=== PATIENT | male | born 1985 | race Caucasian/White ===

== ENCOUNTER → 2020-12-30 14:17 | Outpatient (CLI) | payer OTHER, SELFPAY | PROVIDERS: Visit Provider Urology | DX: Z20.822 Contact with and (suspected) exposure to COVID-19 (principal) | CPT/HCPCS: U0003 ==

== ENCOUNTER 2021-01-01 09:58 | Day surgery (SDC) | payer OTHER, SELFPAY ==
[2020-12-30 14:36] VITALS: BMI 41.8
[2021-01-01 10:14] VITALS: BP 147/98; PULSE 80; RESP 16; TEMP 36.2; O2SAT 96
[2021-01-01 11:53] VITALS: BP 128/75; PULSE 75; RESP 18; TEMP 36.6; O2SAT 97
[2021-01-01 12:09] VITALS: BP 128/75; PULSE 75; RESP 18; O2SAT 97
--- NOTE | 2021-01-01 12:48 | HMH.OPNOTE ---
Date of procedure: 01/01/21 Pre-op Diagnosis:: Sterilization Post-op Diagnosis:: Sterilization Procedure performed:: Vasectomy Surgeon:: Richie Acevedo MD Anesthesia: local Estimated blood loss (mL): 3 Clinical Note:: 35-year-old white male previously seen for vasectomy consultation presents for the procedure today. Operative findings:: Scrotal and testicular examination were within normal limits. Vasectomy went well no complications were incurred. Operative note:: Patient taken to the vasectomy suite after informed consent was obtained. On the stretcher he was prepped and draped in the standard surgical fashion and the left vas was palpated and brought up superiorly to the midline raphae. Local anesthetic then infiltrated under the skin and then midline raphae and around the vas. An incision was then made in the skin and the vas was grasped with a tenaculum and brought up through the incision. The vasal sheath was incised and the vas proper was isolated from its surrounding adventitia. The adventitia was pushed back to give us adequate length of the vas and 1 clip was placed distally and 2 clips placed proximally. A 1 cm segment was then excised. The lumen of the vas was cauterized and hemostasis achieved and the vas was dropped back into the left hemiscrotum. The right vas was then palpated and brought up to the midline incision as well. Local anesthetic was infiltrated around the right vas and the identical procedure was performed as on the left side. After hemostasis the right vas was dropped back into the hemiscrotum and the 3-0 chromic was placed in a horizontal mattress fashion. Sterile dressing and jockstrap were placed. The patient tolerated procedure well nourished minimal blood loss. Condition: stable Disposition: same day Specimens:: Vas segments were not sent Complications:: None
== END 2021-01-01 12:03 | disposition home or self-care (01) ==
LOC: OUTP 10:01
PROVIDERS: PCP Internal Medicine; Visit Provider Urology
PROC: (CPT 55250; principal; 2021-01-01 11:00)
DX: Z30.2 Encounter for sterilization (principal); E78.5 Hyperlipidemia, unspecified; Z79.899 Other long term (current) drug therapy
CPT/HCPCS: 55250

== ENCOUNTER 2021-08-29 17:45 | Emergency (ER) | payer OTHER, SELFPAY ==
--- NOTE | 2021-08-29 18:04 | HMH.EDUTC ---
[facility] [place] Disposition Clinical Impression: Sinusitis Qualifiers: Sinusitis location: unspecified location Chronicity: acute Recurrence: non-recurrent Qualified Code(s): J01.90 - Acute sinusitis, unspecified Disposition: Home, Self-Care Condition on Discharge: Good Instructions: DI for Sinusitis, DI for Acute Bronchitis Additional Instructions: Drink plenty of fluids. Take tylenol or ibuprofen for pain or fever. Take the medications as directed. Follow up with your regular doctor. GO TO THE ER FOR ANY WORSENING SYMPTOMS Prescriptions: Brompheniramine/Pseudoephed/Dm [Bromfed Dm Cough Syrup] 5 ml PO Q6HP PRN #240 ml PRN Reason: Cough Transmission Status: Pending to [facility] methylPREDNISolone [Medrol] 4 mg PO DIRECTED 6 Days #21 packet Transmission Status: Pending to [facility] Azithromycin [Z-Bry 250mg Tab*] 250 mg PO UD DOSE PK #6 tab Transmission Status: Pending to [facility] Referrals: Jai Langford [Primary Care Provider] - Forms: Work/School Release Time of Disposition: 19:07 Medical Decision Making - Medical Records Medical records reviewed: No: I reviewed the patient's medical records. - Cl Inquiry Pt receiving controlled substance: No Vital Signs: 08/29/21 18:19 Temperature 98.3 F Temperature Source Oral Pulse Rate [Left] 103 H Respiratory Rate 18 Blood Pressure [Right Arm] 145/88 H Blood Pressure Mean [Right Arm] 107 02 Sat by Pulse Oximetry 97 - Lab Data Lab results reviewed: Yes: I reviewed the patient's lab results. Lab Results 08/29/21 18:04: Influenza Type A Ag Negative, Influenza Type B Ag Negative 08/29/21 18:05: Group A Strep Rapid Negative Orders (Tests/Meds): ORDERS Category Date Time Status Strep Screen Confirmation Stat Micro 08/29/21 18:05 Received [facility] HPI - General Stated complaint: Chest congestion;SOA;Body aches Time Seen by Provider: 08/29/21 18:04 - History of Present Illness Provider Complaint: He states that he has been feeling bad since yesterday. He has a sore throat, sinus congestion, low grade fever, chills and malaise. - Related Data Home Medications Medication Instructions Recorded Confirmed atorvastatin 40 mg tablet 40 mg PO DAILY 12/14/20 01/01/21 paroxetine HCl 20 mg tablet 20 mg PO DAILY 12/14/20 01/01/21 testosterone 1 pump TRANSDERMA DAILY g 12/14/20 01/01/21 Previous Rx's Medication Instructions Recorded Hydrocod/Acet 5/325 mg [[place] 1 tab PO Q4HP PRN #7 tab 01/01/21 5/325mg tablet] Azithromycin [Z-Bry 250mg Tab*] 250 mg PO UD DOSE PK #6 tab 08/29/21 Brompheniramine/Pseudoephed/Dm 5 ml PO Q6HP PRN #240 ml 08/29/21 [Bromfed Dm Cough Syrup] methylPREDNISolone [Medrol] 4 mg PO DIRECTED 6 Days #21 08/29/21 packet Allergies Allergy/AdvReac Type Severity Reaction Status Date / Time No Known Allergies Allergy Verified 01/01/21 10:13 [facility] History - Hepatitis A Screen Attestation statement:: This patient has been screened for Hepatitis A risk factors. I have reviewed the patient's past medical history: Yes Medical History: Reports:: Hyperlipidemia Denies:: Cancer, Diabetes Mellitus Type 1, Diabetes Mellitus Type 2, Internal Pacemaker, MRSA, Seizures Other Surgeries: Yes: No Previous Surgery. No: Pacemaker Amputation: No Fractures: No Comment: face surgery - Social History Smoking Status: Never smoker Alcohol Intake: never Alcohol Intake Frequency:: holidays/special occasions only Substance Use Type: denies use Occupational Status: employed Housing: house Household Members: spouse Family Hx:: No significant family history ROS Obtained: Yes All systems reviewed & no additional complaints - Constitutional Constitutional: Reports as per HPI - Eyes Eyes: Denies eye discharge - ENT Ears, Nose, Mouth, and Throat: Reports as per HPI - Cardiovascular Cardiovascular: Denies chest pain - Respiratory Respiratory: Reports chest congestio
[2021-08-29 18:19] VITALS: BP 145/88; PULSE 103; RESP 18; TEMP 36.8; O2SAT 97; BMI 40.6
[2021-08-29 18:25] LABS: UTC Influenza A Antigen Negative (Negative); UTC Influenza B Antigen Negative (Negative)
[2021-08-29 18:30] LABS: Strep Scrn Group A (Rapid) Negative (Negative)
[2021-08-29 19:13] VITALS: BP 145/88; PULSE 103; RESP 18; TEMP 36.8
== END 2021-08-29 19:14 | disposition home or self-care (01) ==
PROVIDERS: Emergency Provider Nurse Practitioner Family; PCP Pediatrics
DX: J01.90 Acute sinusitis, unspecified (principal); E78.5 Hyperlipidemia, unspecified
CPT/HCPCS: 87430; 87804; 99212; C9803; G0463; U0003; U0005

== ENCOUNTER 2021-12-13 09:07 | Emergency (ER) | payer OTHER, SELFPAY ==
[2021-12-13 09:46] VITALS: BP 121/78; PULSE 70; RESP 17; TEMP 36.7; O2SAT 100; BMI 41.3
--- NOTE | 2021-12-13 09:57 | HMH.EDUTC ---
[facility] [place] Disposition Clinical Impression: Sunburn Disposition: Home, Self-Care Condition on Discharge: Good Instructions: How to Avoid Sunburn, Sunburn, DI for Sunburn, Silver Sulfadiazine Additional Instructions: Apply medication to the blistered area only try to avoid applying on healthy skin Cool compresses may help Make sure to drink plenty of water and keep yourself and your skin hydrated Apply lotion frequently ointments like Aquaphor may help Return if needed Follow up with your Family Doctor if no improvement or any worsening of symptoms Over the counter Motrin for pain Over the counter Benadryl may help with itching Over the counter Aloe may help but make sure to avoid any that contains alcohol Prescriptions: methylPREDNISolone [Medrol 4mg tab] 4 mg PO DIRECTED #21 tab Transmission Status: Pending to [facility] Silver Sulfadiazine [Silvadene Cream 50gm] 1 applic TP BID 7 Days #50 gm Transmission Status: Pending to [facility] Referrals: Jai Langford [Primary Care Provider] - As needed Forms: Work/School Release Time of Disposition: 10:08 Medical Decision Making - Cl Inquiry Pt receiving controlled substance: No Cl was queried for this patient: No Vital Signs: 12/13/21 09:46 Temperature 98.1 F Temperature Source Oral Pulse Rate [Left] 70 Respiratory Rate 17 Blood Pressure [Right Arm] 121/78 Blood Pressure Mean [Right Arm] 92 02 Sat by Pulse Oximetry 100 Medical Decision Narrative: Patient states that he has taken Medrol in the past without compllications or reactions [facility] [place] HPI - General Stated complaint: sunburn Time Seen by Provider: 12/13/21 09:57 Description of Symptoms (Recalled from Triage Doc. by RN): patient comes in with sunburn blisters that occured monday. blisters are across top of back and shoulder area. patient states he has been having pain r/t the blisters HEENT Symptoms (Recalled from RN notes): No Resp Symptoms (Recalled from RN notes): No Skin Symptoms (Recalled from RN notes): Yes MS Symptoms (Recalled from RN notes): No Functional Status (Recalled from RN notes): n/a - History of Present Illness Provider Complaint: Patient states that he was out in the sun on Monday and noticed monday that he had a bad sunburn States that he noticed he had little blisters on his shoulders that was fluid filled and hurt when he would touch them States that he has been taking otc Motrin but not helped much so today he came in to get checked out - Related Data Home Medications Medication Instructions Recorded Confirmed atorvastatin 40 mg tablet 40 mg PO DAILY 12/14/20 12/13/21 paroxetine HCl 20 mg tablet 20 mg PO DAILY 12/14/20 12/13/21 testosterone 1 pump TRANSDERMA DAILY g 12/14/20 12/13/21 Previous Rx's Medication Instructions Recorded Hydrocod/Acet 5/325 mg [[place] 1 tab PO Q4HP PRN #7 tab 01/01/21 5/325mg tablet] Azithromycin [Z-Bry 250mg Tab*] 250 mg PO UD DOSE PK #6 tab 08/29/21 Brompheniramine/Pseudoephed/Dm 5 ml PO Q6HP PRN #240 ml 08/29/21 [Bromfed Dm Cough Syrup] methylPREDNISolone [Medrol] 4 mg PO DIRECTED 6 Days #21 08/29/21 packet Silver Sulfadiazine [Silvadene 1 applic TP BID 7 Days #50 gm 12/13/21 Cream 50gm] methylPREDNISolone [Medrol 4mg 4 mg PO DIRECTED #21 tab 12/13/21 tab] Allergies Allergy/AdvReac Type Severity Reaction Status Date / Time No Known Allergies Allergy Verified 12/13/21 09:37 - Worker's Comp Is this a Worker's Comp case?: No [facility] History - Hepatitis A Screen Attestation statement:: This patient has been screened for Hepatitis A risk factors. I have reviewed the patient's past medical history: Yes Medical History: Reports:: Hyperlipidemia Denies:: Cancer, Diabetes Mellitus Type 1, Diabetes Mellitus Type 2, Internal Pacemaker, MRSA, Seizures Other Surgeries: Yes: No Previous Surgery. No: Pacemaker Amputation: No Fractures: No Comment: face surgery - Social History
[2021-12-13 10:12] VITALS: BP 121/78; PULSE 70; RESP 17; TEMP 36.7
== END 2021-12-13 10:14 | disposition home or self-care (01) ==
PROVIDERS: Emergency Provider Nurse Practitioner; PCP Pediatrics
DX: L55.1 Sunburn of second degree (principal)
CPT/HCPCS: 99212; G0463

== ENCOUNTER 2022-02-20 10:15 | Emergency (ER) | payer OTHER, SELFPAY ==
[2022-02-20 10:30] VITALS: BP 141/77; PULSE 76; RESP 16; TEMP 36.7; O2SAT 98; BMI 38.6
--- NOTE | 2022-02-20 10:35 | EXP.UTC ---
Discharge Plan Disposition Patient Disposition: Home, Self-Care Prescriptions Prescriptions: New azithromycin [Zithromax Z-Bry] 250 mg tablet 250 mg PO DAILY 5 Days Qty: 5 0RF fluticasone propionate [fluticasone propionate] 50 mcg/actuation spray,suspension 1 spr intranasal DAILY 14 Days Qty: 1 0RF Continued testosterone 12.5 mg/ 1.25 gram (1 %) gel in metered-dose pump 1 pump TRANSDERMA DAILY atorvastatin 40 mg tablet 40 mg PO DAILY paroxetine HCl 20 mg tablet 20 mg PO DAILY hydrocodone-acetaminophen 1 TAB tablet 1 tab PO Q4HP PRN (Reason: Mild To Moderate Pain) Qty: 7 0RF escitalopram oxalate 10 mg tablet 10 mg PO DAILY Discontinued azithromycin 250 MG tablet 250 mg PO UD DOSE PK Qty: 6 0RF Rx Instructions: Take two (2) tablets today, then one (1) tablet days #2 thru #5 methylprednisolone 4 MG tablets,dose pack 4 mg PO DIRECTED 6 Days Qty: 21 0RF [id number] 118 ML syrup 5 ml PO Q6HP PRN (Reason: Cough) Qty: 240 0RF silver sulfadiazine 50 GM bottle 1 applic TP BID 7 Days Qty: 50 0RF methylprednisolone 4 MG tablet 4 mg PO DIRECTED Qty: 21 0RF Rx Instructions: Take as directed on package instructions Referrals Follow up/Referrals: Yadiel Langford [Primary Care Provider] - See instructions Clinical Impressions Clinical Impression: Sinusitis Instructions Patient Instructions: DI for Sinusitis, Sinusitis Discharge ED Provider: Elkin ([facility])Connor [facility] [place] H[place] General Stated complaint: Congestion, sinus pressure Mode of Arrival: Ambulatory Source of Information: Patient Limitations: No Limitations Time Seen by Provider: 02/20/22 10:38 Description of Symptoms (Recalled from Triage Doc. by RN): pt comes in with c/o chest congestion, sinus pressure. symptoms have been ongoing for 2 weeks. HEENT Symptoms (Recalled from RN notes): Yes Resp Symptoms (Recalled from RN notes): Yes Skin Symptoms (Recalled from RN notes): No MS Symptoms (Recalled from RN notes): No Functional Status (Recalled from RN notes): n/a History of Present Illness Provider Complaint: 36 yr old male presents for sinus pressure, green nasal congestion, sinus tenderness and headache Onset (ago): day(s) Related Data Home Medications Medication Instructions Recorded Confirmed atorvastatin 40 mg tablet 40 mg PO DAILY hld 12/14/20 02/20/22 paroxetine HCl 20 mg tablet 20 mg PO DAILY mood 12/14/20 12/13/21 testosterone 12.5 mg/1.25 gram per 1 pump TRANSDERMA DAILY hormones 12/14/20 12/13/21 actuation (1%) transdermal gel pump escitalopram oxalate 10 mg tablet 10 mg PO DAILY Anxiety 02/20/22 02/20/22 Previous Rx's Medication Instructions Recorded hydrocodone 5 mg-acetaminophen 325 1 tab PO Q4HP PRN Mild To Moderate 01/01/21 mg tablet Pain #7 tabs azithromycin 250 mg tablet 250 mg PO DAILY 5 days #5 tabs 02/20/22 (Zithromax Z-Bry) fluticasone propionate 50 1 spr intranasal DAILY 14 days #1 02/20/22 mcg/actuation nasal mL spray,suspension Allergies Allergy/AdvReac Type Severity Reaction Status Date / Time No Known Allergies Allergy Verified 02/20/22 10:34 Worker's Comp Is this a Worker's Comp case?: No PFSH PFSH Social History , KEY ENTRY OPERATOR) Smoking Status: Never smoker alcohol intake: never substance use type: denies use current occupational status: employed Travel in the last 8 weeks: None household members: spouse housing: house current occupational exposures/hazards: No caffeine: Yes ROS Obtained: Yes All systems reviewed & no additional complaints except as documented Constitutional Constitutional: Reports system reviewed and no additional complaints, except as documented and Reports headache(s) Eyes Eyes: Reports system reviewed and no additional complaints, except as documented ENT Ears, Nose, Mouth, and Throat: Reports system reviewed and n
[2022-02-20 10:53] VITALS: BP 141/77; PULSE 76; RESP 16; TEMP 36.7
== END 2022-02-20 10:53 | disposition home or self-care (01) ==
PROVIDERS: Emergency Provider Nurse Practitioner Family; PCP Internal Medicine
DX: J32.9 Chronic sinusitis, unspecified
CPT/HCPCS: 99212; G0463

== ENCOUNTER 2023-02-24 11:33 | Emergency (ER) | payer OTHER, SELFPAY ==
[2023-02-24 12:15] VITALS: BP 146/94; PULSE 80; RESP 20; TEMP 36.9; O2SAT 97; BMI 39.3
--- NOTE | 2023-02-24 12:16 | EXP.UTC ---
Discharge Plan Disposition Patient Disposition: Home, Self-Care Condition: Good Prescriptions Prescriptions: New amoxicillin 875 mg tablet 875 mg PO BID Qty: 20 0RF No Action testosterone 12.5 mg/ 1.25 gram (1 %) gel in metered-dose pump 1 pump TRANSDERMA DAILY atorvastatin 40 mg tablet 40 mg PO DAILY paroxetine HCl 20 mg tablet 20 mg PO DAILY hydrocodone-acetaminophen 1 TAB tablet 1 tab PO Q4HP PRN (Reason: Mild To Moderate Pain) Qty: 7 0RF escitalopram oxalate 10 mg tablet 10 mg PO DAILY azithromycin [Zithromax Z-Bry] 250 mg tablet 250 mg PO DAILY 5 Days Qty: 5 0RF fluticasone propionate [fluticasone propionate] 50 mcg/actuation spray,suspension 1 spr intranasal DAILY 14 Days Qty: 1 0RF Referrals Follow up/Referrals: Yadiel Langford [Primary Care Provider] - See instructions Clinical Impressions Clinical Impression: Strep pharyngitis Stand Alone Forms Stand Alone Forms: Work/School Release Discharge ED Provider: Joyce Morel [facility] [place] HPI General Stated complaint: sore throat, congestion Time Seen by Provider: 02/24/23 12:32 History of Present Illness Provider Complaint: Sore throat, congestion, malaise X 3 days. No fever. Son has strep. Onset (ago): day(s) (3) Relieving factors: none Exacerbating factors: none Associated symptoms: denies other symptoms Treatments prior to arrival: none Related Data Home Medications Medication Instructions Recorded Confirmed atorvastatin 40 mg tablet 40 mg PO DAILY hld 12/14/20 02/20/22 paroxetine HCl 20 mg tablet 20 mg PO DAILY mood 12/14/20 12/13/21 testosterone 12.5 mg/1.25 gram per 1 pump TRANSDERMA DAILY hormones 12/14/20 12/13/21 pump actuation (1%) transdermal gel escitalopram oxalate 10 mg tablet 10 mg PO DAILY Anxiety 02/20/22 02/20/22 Previous Rx's Medication Instructions Recorded hydrocodone 5 mg-acetaminophen 325 1 tab PO Q4HP PRN Mild To Moderate 01/01/21 mg tablet Pain #7 tabs azithromycin 250 mg tablet 250 mg PO DAILY 5 days #5 tabs 02/20/22 (Zithromax Z-Bry) fluticasone propionate 50 1 spr intranasal DAILY 14 days #1 02/20/22 mcg/actuation nasal mL spray,suspension amoxicillin 875 mg tablet 875 mg PO BID #20 tabs 02/24/23 Allergies Allergy/AdvReac Type Severity Reaction Status Date / Time No Known Allergies Allergy Verified 02/20/22 10:34 [facility] Disclaimer: The information contained in this section may have been updated after the patient was seen, as this information can be updated by other users. 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 smoker alcohol intake: never substance use type: denies use current occupational status: employed Travel in the last 8 weeks: None household members: spouse housing: house current occupational exposures/hazards: No caffeine: Yes ROS Obtained: Yes All systems reviewed & no additional complaints except as documented ENT Ears, Nose, Mouth, and Throat: Reports sore throat Physical Exam General General appearance: alert and in no apparent distress Head Head exam: atraumatic, normocephalic and normal inspection Eye Eye exam: Present normal appearance, PERRL and EOMI ENT ENT exam: Present normal exam, normal oropharynx, mucous membranes moist, TM's normal bilaterally and normal external ear exam Expanded ENT Exam Throat exam: Present tonsillar erythema, tonsillomegaly and tonsillar exudate Chest Chest inspection: Present normal inspection and symmetric chest wall rise; Absent tenderness Respiratory Respiratory exam: Present normal lung sounds bilaterally; Absent respiratory distress Cardiovascular Cardiovascular exam: Present regular rate and normal rhythm; Absent JVD Extremities Exam Extremities exam: Present normal inspection, full ROM and normal capillary refill;
[2023-02-24 12:21] LABS: UTC Strep Screen (Rapid) Positive (Negative)
[2023-02-24 12:32] VITALS: BP 146/94; PULSE 80; RESP 20; TEMP 36.9; O2SAT 97
== END 2023-02-24 12:43 | disposition home or self-care (01) ==
PROVIDERS: Emergency Provider Physician Assistant; PCP Internal Medicine
DX: J02.0 Streptococcal pharyngitis (principal); F41.9 Anxiety disorder, unspecified
CPT/HCPCS: 87880; 99212; 99214; G0463

== ENCOUNTER 2023-05-21 12:20 | Emergency (ER) | payer OTHER, SELFPAY ==
--- NOTE | 2023-05-21 13:10 | EXP.UTC ---
Discharge Plan Disposition Patient Disposition: Home, Self-Care Condition: Good Prescriptions Prescriptions: New amoxicillin [amoxicillin] 875 mg tablet 875 mg PO Q12H Qty: 20 0RF methylprednisolone 4 mg Tablets,Dose Pack 4 mg PO DIRECTED Qty: 21 0RF iqyszjmzruzkqve-irjpvdnpz-YK [Bromfed DM] 2-30-10 mg/5 mL Syrup 5 ml PO Q6H PRN (Reason: Cough) Qty: 240 0RF No Action sildenafil 100 mg tablet 100 mg PO DAILY Patient Comments: Take 1/2-1 tablet once a day as needed for ED sertraline 50 mg tablet 50 mg PO DAILY Referrals Follow up/Referrals: Yadiel Langford [Primary Care Provider] - See instructions Activity Restrictions/Add. Instructions Additional Instructions/Restrictions: Drink plenty of fluids. Take tylenol or ibuprofen for pain or fever. Take the medications as directed. Follow up with your regular doctor. GO TO THE ER FOR ANY WORSENING SYMPTOMS Clinical Impressions Clinical Impression: Sinusitis, Pharyngitis Stand Alone Forms Stand Alone Forms: Work/School Release Instructions Patient Instructions: Sinusitis, DI for Pharyngitis/Tonsillopharyngitis -- Adult, DI for Sinusitis Discharge ED Provider: Tre Vergara [facility] General Stated complaint: sore throat, congestion Time Seen by Provider: 05/21/23 13:10 Related Data Home Medications Medication Instructions Recorded Confirmed sertraline 50 mg tablet 50 mg PO DAILY 05/21/23 05/21/23 sildenafil 100 mg tablet 100 mg PO DAILY 05/21/23 05/21/23 Previous Rx's Medication Instructions Recorded amoxicillin 875 mg tablet 875 mg PO Q12H #20 tabs 05/21/23 nbbudfjciokkosu-latqcvlarflnzhv-BY 5 ml PO Q6H PRN Cough #240 mL 05/21/23 2 mg-30 mg-10 mg/5 mL oral syrup (Bromfed DM) methylprednisolone 4 mg tablets in 4 mg PO DIRECTED #21 tabs 05/21/23 a dose pack Allergies Allergy/AdvReac Type Severity Reaction Status Date / Time No Known Allergies Allergy Verified 02/20/22 10:34 [facility] Disclaimer: The information contained in this section may have been updated after the patient was seen, as this information can be updated by other users. Medical History (Updated 05/21/23 @ 13:35 by Tre Vergara APRN) Anxiety Social History OTONIEL) Smoking Status: Never smoker alcohol intake: never substance use type: denies use current occupational status: employed Travel in the last 8 weeks: None household members: spouse housing: house current occupational exposures/hazards: No caffeine: Yes ROS Obtained: Yes All systems reviewed & no additional complaints except as documented Constitutional Constitutional: Reports chills and Reports fever(s) Eyes Eyes: Denies eye discharge ENT Ears, Nose, Mouth, and Throat: Reports as per HPI Cardiovascular Cardiovascular: Denies chest pain Respiratory Respiratory: Denies chest congestion and Reports cough Gastrointestinal Gastrointestingal: Reports nausea; Denies abdominal pain, constipation, cramping, diarrhea or vomiting Musculoskeletal Musculoskeletal: Denies arthralgias Integumentary/Breasts Skin/Breast: Denies rash Neurologic Neurologic: Denies paresthesias Physical Exam General General appearance: alert and in no apparent distress Head Head exam: atraumatic, normocephalic and normal inspection Eye Eye exam: Present normal appearance, PERRL and EOMI ENT ENT exam: Present mucous membranes moist and normal external ear exam Expanded ENT Exam TM/Canal exam: Bilateral TM: erythema and bulging Nose exam: Absent sinus tenderness Mouth exam: Present normal external inspection; Absent drooling Teeth exam: Present normal inspection Throat exam: Present tonsillar erythema, tonsillomegaly and tonsillar exudate Neck Neck exam: Present normal inspection, full ROM and trachea midline; Absent tenderness, meningismus or lymphadenopathy Chest Chest inspection: Present normal
[2023-05-21 13:15] VITALS: BP 134/79; PULSE 77; RESP 19; TEMP 37.1; O2SAT 97; BMI 40.8
[2023-05-21 13:35] LABS: UTC Strep Screen (Rapid) Negative (Negative)
[2023-05-21 13:45] VITALS: BP 134/79; PULSE 77; RESP 19; TEMP 37.1; O2SAT 97
== END 2023-05-21 13:48 | disposition home or self-care (01) ==
PROVIDERS: Emergency Provider Nurse Practitioner Family; PCP Internal Medicine
DX: J01.90 Acute sinusitis, unspecified (principal); J02.9 Acute pharyngitis, unspecified; R50.9 Fever, unspecified; R05.9 Cough, unspecified; R09.81 Nasal congestion; R11.0 Nausea
CPT/HCPCS: 87635; 87880; 99212; 99214; G0463

== ENCOUNTER 2024-05-21 07:59 | Emergency (ER) | payer BC, SELFPAY ==
[2024-05-21 08:10] VITALS: BP 129/84; PULSE 86; RESP 20; TEMP 37.8; O2SAT 98; BMI 41.5
--- NOTE | 2024-05-21 08:16 | ED_ITS ---
Discharge Plan Disposition Patient Disposition: Home, Self-Care Condition: Good Prescriptions Prescriptions: New penicillin V potassium 500 mg tablet 500 mg PO BID 10 Days Qty: 20 0RF No Action sertraline 50 mg tablet 50 mg PO DAILY atorvastatin 40 mg Tablet 40 mg PO HS testosterone 20.25 mg/1.25 gram (1.62 %) gel in metered-dose pump 1 pump topical DAILY Referrals Follow up/Referrals: Yadiel Langford [Primary Care Provider] - See instructions Activity Restrictions/Add. Instructions Additional Instructions/Restrictions: *Monitor Temp, Over the counter Motrin or Tylenol as directed/as needed Tylenol every 4 hours and Motrin every 6 hours (as long as your family doctor has told you that you can take it) for fever or pain. and straight to ER if unable to lower temp less than 101.0 after medication given *Warm salt water gargles may help to soothe the throat *Throat Lozenges? *Warm fluids like tea with honey may help to soothe the throat? *Sleep elevated *Humidifier/Vaporizer *If you did not take Penicillin shot or was unable to, start taking antibiotic immediately and make sure that you take it for the FULL length of time although you should start to feel better in 24-48 hours *change toothbrush and toothpaste 24-48 hours after starting to take antibiotics so you do not reinfect yourself Monitor Temp. Tylenol and/or Ibuprofen as needed. ER if fever is no less than 101 despite alternating Tylenol and Ibuprofen * Encourage fluids, water, Gatorade, powerade, pedialyte if infant/toddler/or child *Cold fluids, popsicles and ice cream may feel good on his throat Follow up IMMEDIATELY for new or worsening symptoms or no Noticeable improvement over the next 48-72 hours. 911 for difficulty breathing or swallowing Clinical Impressions Clinical Impression: Strep throat Stand Alone Forms Stand Alone Forms: Work/School Release Instructions Patient Instructions: DI for Strep Throat, Strep Throat Print Language Print Language: Slovenian Discharge ED Provider: Nasreen Toussaint [facility] [place] General Stated complaint: sore throat, cough, fever Time Seen by Provider: 05/21/24 08:16 History of Present Illness Provider Complaint: Patient states that he has been having sore throat and fever States feels like he has strep throat His throat is scratchy and feels like he is swallowing glass Related Data Home Medications ?Medication ?Instructions ?Recorded ?Confirmed sertraline 50 mg tablet 50 mg PO DAILY 05/21/23 05/21/24 atorvastatin 40 mg tablet 40 mg PO HS 05/21/24 05/21/24 testosterone 1 pump topical DAILY 05/21/24 05/21/24 Previous Rx's ?Medication ?Instructions ?Recorded penicillin V potassium 500 mg 500 mg PO BID 10 days #20 tabs 05/21/24 tablet Allergies Allergy/AdvReac Type Severity Reaction Status Date / Time No Known Allergies Allergy Verified 02/20/22 10:34 [facility] Disclaimer: The information contained in this section may have been updated after the patient was seen, as this information can be updated by other users. Medical History (Updated 05/21/24 @ 08:26 by Nasreen Toussaint APRN) Anxiety Social History , OTONIEL) Smoking Status: Never smoker alcohol intake: never substance use type: denies use current occupational status: employed Travel in the last 8 weeks: None household members: spouse housing: house current occupational exposures/hazards: No caffeine: Yes Have you lived/traveled outside [place] in past 30 days?: No Contact w/someone who lives/traveled outside US past 30 days?: No Exposure to someone with infectious disease in past 14 days?: No Do you have a fever (greater than 100.4 F or 38 C)?: Yes Have you tested positive for COVID-19: No Exposed to someone with COVID-19 in past 14 days?: No Do you have a sore throat?: Yes Do you have a cough?: Yes Do you have any weakness?: No Do you have any diarrhea?: No Are you experiencing any unusual bleeding?: No Do you have any muscle aches/pain?: No Do you have any abdominal pain?: No Are you experiencing loss of taste or smell?: No ROS Obtained: Yes All systems reviewed & no additional complaints except as documented and Yes Systems reviewed as appropriate & no additional complaints except as documented Constitutional Constitutional: Reports system reviewed and no additional complaints, except as documented, Reports as per HPI, Reports fever(s) and Reports headache(s) ENT Ears, Nose, Mouth, and Throat: Reports system reviewed and no additional complaints, except as documented, Reports as per HPI, Reports headache(s) and Reports sore throat Cardiovascular Cardiovascular: Reports system reviewed and no additional complaints, except as documented and Reports as per HPI Respiratory Respiratory: Reports system reviewed and no additional complaints, except as documented and Reports as per HPI Gastrointestinal Gastrointestingal: Reports system reviewed and no additional complaints, except as documented and as per HPI Musculoskeletal Musculoskeletal: Reports system reviewed and no additional complaints, except as documented and Reports as per HPI Neurologic Neurologic: Reports headache(s) Physical Exam General General appearance: alert and in no apparent distress ENT ENT exam: Present mucous membranes moist Expanded ENT Exam Nose exam: Absent sinus tenderness Throat exam: Present tonsillar erythema and tonsillar exudate Respiratory Respiratory exam: Present normal lung sounds bilaterally; Absent respiratory distress or wheezes Cardiovascular Cardiovascular exam: Present regular rate, normal rhythm and normal heart sounds Abdominal Exam Abdominal exam: Present soft and normal bowel sounds; Absent distention or tenderness Neurological Exam Neurological exam: Present alert, oriented X3 and normal gait Medical Decision Making Medical Records Screening: Per USPSTF and CDC recommendations, given the prevalence of disease in our region, it is our hospital?s policy to screen for HIV and viral Hepatitis for all patients aged 18 and over and those with ongoing risk factors. Cl Inquiry Pt receiving controlled substance: No Cl was queried for this patient: No Lab Data Lab results reviewed: Yes I reviewed the patient's lab results.
[2024-05-21 08:24] LABS: UTC Strep Screen (Rapid) Positive (Negative)
[2024-05-21 08:30] VITALS: BP 129/84; PULSE 86; RESP 20; TEMP 37.8; O2SAT 98
== END 2024-05-21 08:33 | disposition home or self-care (01) ==
PROVIDERS: Emergency Provider Nurse Practitioner; PCP Internal Medicine
DX: J02.0 Streptococcal pharyngitis (principal)
CPT/HCPCS: 87880; 99213; G0381

== ENCOUNTER 2025-05-20 14:38 | Emergency (ER) | payer OTHER, SELFPAY ==
--- OUTSIDE RECORDS SUMMARY | 2025-04-14 13:15 | XMS_ITS | Encounter Summary ---
Author Organization [facility] Address [address] [place] [address] Care Team Providers Care Crane Hoist Or Lift Operator Name Role Phone Yadiel Langford MD Primary Care Provider [phone] Reason for Visit * Reason Comments Sore Throat Cough Nasal Congestion Encounter Details Date Type Department Care Team (Late st Contact Info) Description 04/14/2025 1:15 PM EST Office Visit [facility] [address] [place] [address] [place] [id number] Yadiel Langford MD [address] [place] [address] [place] [id number] Acute pharyngitis, unspecified etiology (Primary Dx) Social History Tobacco Use Types Packs/Day Years Used Date Smoking Tobacco: Never Smokeless Tobacco: Never Alcohol Use Standard Drinks/Week Comments Yes 0 (1 standard drink = 0.6 oz pur e alcohol) RARE SOCIAL PHQ-2 Answer Date Recorded Retired PHQ-9: Brief Depression Severity Measure Score 0 12/12/2022 PHQ-2 Answer Date Recorded Patient Health Questionnaire-2 Score 0 02/11/2025 Sex and Gender Information Value Date Recorded Sex Assigned at Not on file Legal Sex Male 6:50 PM EDT Gender Identity Not on file Sexual Orientation Not on file documented as of this encounter Last Filed Vital Signs Vital Sign Reading Time Taken Comments Blood Pressure 118/80 04/14/2025 1:09 PM EST Pulse 80 04/14/2025 1:09 PM EST Temperature 36.9 C (98.4 F) 04/14/2025 1:09 PM EST Respiratory Rate 20 04/14/2025 1:09 PM EST Oxygen Saturation 99% 04/14/2025 1:09 PM EST Inhaled Oxygen Concentration - - Weight 137 kg (303 lb) 04/14/2025 1:09 PM EST Height 175.9 cm (5' 9.25 ) 04/14/2025 1:09 PM ES T Body Mass Index 44.42 04/14/2025 1:09 PM EST documented in this encounter Progress Notes * Yadiel Langford MD - 04/14/2025 1:15 PM EST Images from the original note were not included. Follow Up Office Visit Date: 04/14/2025 Patient Name: Marin Bills : 1985 Chief Complaint: Chief Complaint Patient presents with Sore Throat Cough Nasal Congestion History of Present Illness: Marin Bills is a 40 y.o. male who is here today for evaluation of sore throat. History of Present Illness The patient presents for evaluation of a sore throat. He was diagnosed with strep throat a few weeks ago, confirmed through testing at an urgent treatment center. Concurrently, an ear infection was suspected due to the redness observed in his ear, although he did not experience any discomfort related to it. He was prescribed amoxicillin, which initially alleviated his symptoms. However, upon discontinuation of the medication, his symptoms recurred within 2 to 3 days. He describes his current condition as feeling like swallowing glass, similar to his pre-diagnosis state. He reports no fevers or headaches but experienced body aches and fatigue during his initial illness. Currently, he has a runny nose that has persisted for 3 to 4 days. He is not experiencing nausea or abdominal pain and maintains a good appetite. He also reports pain when talking after work. He has been managing his pain with Advil or Tylenol. MEDICATIONS CURRENT MEDS: Advil Tylenol IMMUNIZATIONS He has had the influenza vaccine. Subjective Review of Systems: Review of Systems I have reviewed the patients family history, social history, past medical history, past surgical history and have updated it as appropriate. Medications: Current Outpatient Medications: atorvastatin (LIPITOR) 80 MG tablet, Take 1 tablet by mouth every night at bedtime., Disp: 90 tablet, Rfl: 2 cetirizine (zyrTEC) 10 MG tablet, Take 1 tablet by mouth Daily. As needed for allergies, Disp: 90 tablet, Rfl: 2 Cholecalciferol (Vitamin D) 50 MCG (1999 UT) tablet, Take 1 tablet by mouth Daily., Disp: 90 tablet, Rfl: 3 fluticasone (FLONASE) 50 MCG/ACT nasal spray, Administer 2 sprays into the nostril(s) as directed by provider Daily., Disp: 16 g, Rfl: 3 mupirocin (BACTROBAN) 2 % ointment, Apply 1 Application topically to the appropriate area as directed 3 (Three) Times a Day., Disp: 22 g, Rfl: 0 sertraline (Zoloft) 100 MG tablet, Take 1 tablet by mouth Daily., Disp: 90 tablet, Rfl: 2 sildenafil (VIAGRA) 100 MG tablet, Take 1 tablet by mouth As Needed for Erectile Dysfunction., Disp: 20 tablet, Rfl: 3 Testosterone 1.62 % gel, APPLY 1 PUMP TO EACH SHOULDER TOPICALLY ONCE DAILY (TOTAL 2 PUMPS), Disp: 75 g, Rfl: 0 Allergies: Allergies Allergen Reactions Shrimp Provider Review Needed Objective Physical Exam: Please see above Vital Signs: Vitals: 04/14/25 1309 BP: 118/80 BP Location: Left arm Patient Position: Sitting Cuff Size: Adult Pulse: 80 Resp: 20 Temp: 98.4 ??F (36.9 ??C) TempSrc: Temporal SpO2: 99% Weight: (!) 137 kg (303 lb) Height: 175.9 cm (69.25 ) Body mass index is 44.42 kg/m??. Physical Exam Constitutional: General: He is not in acute distress. Appearance: Normal appearance. He is obese. He is not ill-appearing. HENT: Right Ear: Tympanic membrane and ear canal normal. Left Ear: Tympanic membrane and ear canal normal. Nose: Congestion and rhinorrhea present. Mouth/Throat: Mouth: Mucous membranes are moist. Pharynx: Posterior oropharyngeal erythema present. No oropharyngeal exudate. Comments: Mild posterior pharyngeal erythema without exudate petechiae or ulcerations Cardiovascular: Rate and Rhythm: Normal rate and regular rhythm. Heart sounds: Normal heart sounds. No murmur heard. No friction rub. No gallop. Pulmonary: Effort: Pulmonary effort is normal. No respiratory distress. Comments: No cough noted Musculoskeletal: Cervical back: No rigidity or tenderness. Lymphadenopathy: Cervical: No cervical adenopathy. Skin: General: Skin is warm and dry. Findings: No rash. Neurological: General: No focal deficit present. Mental Status: He is alert. Psychiatric: Mood and Affect: Mood normal. Procedures Results: Labs: Hemoglobin A1C Date Value Ref Range Status 02/11/2025 5.9 (A) 4.5 - 5.7 % Final TSH Date Value Ref Range Status 02/11/2025 1.650 0.450 - 4.500 uIU/mL Final POCT Results (if applicable): Results for orders placed or performed in visit on 04/14/25 POC Rapid Strep A Collection Time: 04/14/25 1:46 PM Specimen: Swab Result Value Ref Range Rapid Strep A Screen Negative Negative, VALID, INVALID, Not Performed Internal Control Passed Passed Lot Number [id number] Expiration Date 05/06/2026 Assessment / Plan Assessment/Plan: Diagnoses and all orders for this visit: 1. Acute pharyngitis, unspecified etiology (Primary) - POC Rapid Strep A Assessment & Plan 1. Upper respiratory infection. The patient's symptoms, including a sore throat, runny nose, and cough, suggest a viral etiology rather than streptococcal pharyngitis, especially given the negative strep test result. The infection is expected to resolve within 3 to 5 days or potentially longer. He is advised to maintain social distance until his symptoms subside. [id number] remedies such as Chloraseptic sprays, warm saline gargles, Tylenol, ibuprofen, and lozenges are recommended for symptomatic relief. He is encouragedto receive the COVID-19 booster vaccine at a pharmacy once his symptoms resolve. If there is no improvement in his condition or if symptoms worsen, he should inform the clinic immediately. Follow-up The patient will follow up on 08/11/2025. Vaccine Counseling: Follow Up: Return for Next scheduled follow up. Patient or patient accounts receivable representative verbalized consent for the use of Ambient Listening during the visit with Yadiel Langford MD for chart documentation. 04/14/2025 15:01 EST At [facility], we believe that sharing information builds trust and better relationships. You are receiving this note because you recently visited [facility]. It is possible you will see health information before a provider has talked with you about it. This kind of information can be easy to misunderstand. To help you fully understand what it means for your health, we urge you to discussthis note with your provider. Yadiel Langford MD [facility] documented in this encounter Plan of Treatment Upcoming Encounters Date Type Department Care Team (Late st Contact Info) Description 08/11/2025 3:00 PM EDT Office Visit [facility] [address] [place] [address] [place] [phone] Yadiel Langford MD [address] [place] [address] [place] [id number] 02/12/2026 3:30 PM EDT Office Visit [address] [place] [id number] Yadiel Langford MD [address] [place] [address] [place] [id number] documented as of this encounter Procedures Procedure Name Priority Date/Time Associated Diagnosis Comments POCT RAPID STREP A Routine 04/14/2025 1: 46 PM EST Acute pharyngitis, unspecified etiology documented in this encounter Results * POC Rapid Strep A (04/14/2025 1:46 PM EST) Rapid Strep A Screen Negative Negative, VALID, INVALID, Not Performed [facility] Internal Control Passed Passed [facility] Lot Number [id number] [facility] Expiration Date 05/06/2026 [facility] Swab 04/14/2025 1:46 PM EST us Yadiel Langford MD POINT OF CARE TEST ORDERABLES Final Result [facility]
[address] [place] [address], [place] [phone] documented in this encounter Visit Diagnoses Diagnosis Acute pharyngitis, unspecified etiology- Primary documented in this encounter Care Teams Crane Hoist Or Lift Operator Relationship Specialty Start Date End Date Yadiel Langford MD [address] [place] [address] [place] [id number] PCP - General Internal Medicine 04/18/22 documented as of this encounter
[2025-05-20 15:02] VITALS: BP 149/81; PULSE 102; RESP 19; TEMP 36.7; O2SAT 95; BMI 44.3
--- NOTE | 2025-05-20 15:05 | XR_ITS ---
FINAL REPORT TECHNIQUE: Single view chest CLINICAL HISTORY: SOA FINDINGS: A single view of the chest was obtained. The heart and mediastinum are within normal limits. There is a right base opacity which could represent atelectasis or pneumonia. There is no pneumothorax. IMPRESSION: No acute cardiopulmonary process. Reviewed, Interpreted and Dictated by Jana Oconnor MD Transcribed by Yvonne Ribera Authenticated and [facility]
--- NOTE | 2025-05-20 15:07 | ED_ITS ---
<Statement entered by Tatiana Arthur DO - 05/20/25 23:04> I was consulted by the NANCY, and we discussed the complexity of problems being addressed. I approve the treatment and management plan for this patient's care in the emergency department, thus performing a substantial portion of the medical decision making. Tatiana Arthur DO Discharge Plan Disposition Patient Disposition: Home, Self-Care Prescriptions Prescriptions: No Action sertraline 50 mg tablet 50 mg PO DAILY atorvastatin 40 mg Tablet 40 mg PO HS testosterone 20.25 mg/1.25 gram (1.62 %) gel in metered-dose pump 1 pump topical DAILY Referrals Follow up/Referrals: Yadiel Langford [Primary Care Provider, Medical] - See instructions Activity Restrictions/Add. Instructions Additional Instructions/Restrictions: Today you were evaluated in the emergency department and diagnosed with rhinovirus. You were given DuoNebs breathing treatment and steroids through your IV. Please follow-up with your PCP within 1 week. As we discussed, return to the ED for any worsening of your condition. Clinical Impressions Clinical Impression: Rhinovirus, Upper respiratory disease, Acute viral syndrome Instructions Patient Instructions: DI for Viral Upper Respiratory Infection in Adults Print Language Print Language: Thai Discharge ED Provider: Tatiana Arthur General Adult HPI General Chief complaint: Shortness of Breath/Dyspnea Stated complaint: SOA Time Seen by Provider: 05/20/25 15:01 Mode of Arrival: Ambulatory Source of Information: Patient Description of Symptoms (Recalled from ER Triage Doc. by RN): pt presents to ED with c/o shortness of air. pt reports that yesterday he began to have a dry cough, with congestion. pt reports that this am he noticed shortness of breath with excertion. History of Present Illness HPI narrative: patient is a 40-year-old male PMHx HLD, obesity who presents to the ED for complaints of shortness of breath, fatigue, cough x 1 to 2 days. Patient states that he was exposed to some sick friends at his [employer] several days ago. He states while each year he does get a URI, it feels worse this year as he feels like he has to gasp for breath at times. Denies tobacco use. Related Data Home Medications ?Medication ?Instructions ?Recorded ?Confirmed sertraline 50 mg tablet 50 mg PO DAILY 05/21/2305/05 atorvastatin 40 mg tablet 40 mg PO HS 05/21/24 5 testosterone 1 pump topical DAILY 4 05/20/25 Allergies Allergy/AdvReac Type Severity Reaction Status Date / Time No Known Allergies Allergy Verified 05/20/25 14:25 [facility] Disclaimer: The information contained in this section may have been updated after the patient was seen, as this information can be updated by other users. Medical History Otitis media Anxiety Social History Smoking Status: Never smoker alcohol intake: never substance use type: denies use current occupational status: employed Travel in the last 8 weeks?: None household members: spouse housing: house current occupational exposures/hazards: No caffeine: Yes Have you lived/traveled outside [place] in past 30 days?: No Contact w/someone who lives/traveled outside [place] past 30 days?: No Exposure to someone with infectious disease in past 14 days?: No Do you have a fever (greater than 100.4 F or 38 C)?: No Have you tested positive for COVID-19?: No Exposed to someone with COVID-19 in past 14 days?: No Do you have a sore throat?: No Do you have a cough?: No Do you have any weakness?: No Do you have any diarrhea?: No Are you experiencing any unusual bleeding?: No Do you have any muscle aches/pain?: No Do you have any abdominal pain?: No Are you experiencing loss of taste or smell?: No Other Medical History Have you received the Flu Vaccine for this season: Yes Have you received the Pneumonia Vaccine: No ROS Obtained: Yes Systems reviewed as appropriate & no additional complaints except as documented Physical Exam General General appearance: alert Head Head exam: atraumatic Eye Eye exam: Present PERRL Neck Neck exam: Present full ROM Respiratory Respiratory exam: Present respiratory distress and wheezes Cardiovascular Cardiovascular exam: Present tachycardia Abdominal Exam Abdominal exam: Present soft; Absent tenderness Neurological Exam Neurological exam: Present alert and oriented X3 Skin Skin exam: Present warm and dry Medical Decision Making Medical Records Screening: Per USPSTF and CDC recommendations, given the prevalence of disease in our region, it is our hospital?s policy to screen for HIV and viral Hepatitis for all patients aged 18 and over and those with ongoing risk factors. Cl Inquiry Pt receiving controlled substance: No Vital Signs: 05/20/25 15:02 Temperature 98.0 F Temperature Source Oral Pulse Rate [Left Radial] 102 H Respiratory Rate 19 Blood Pressure [Right Arm] 149/81 H Blood Pressure Mean [Right Arm] 103 02 Sat by Pulse Oximetry 95 Oxygen Delivery Method Room Air Lab Data Lab Results 05/20/25 13:15: WBC 13.2 H, RBC 4.89, Hgb 13.7 L, Hct 41.0 L, MCV 83.8, MCH 28.0, MCHC 33.4, RDW 12.7, Plt Count 298, MPV 9.2, Neut % (Auto) 79.8, Lymph % (Auto) 9.7 L, [place] % (Auto) 4.5, Eos % (Auto) 4.8, Baso % (Auto) 0.5, Neut # (Auto) 10.5 H, Lymph # (Auto) 1.3, [place] # (Auto) 0.6, Eos # (Auto) 0.6 H, Baso # (Auto) 0.1, D-Dimer 0.39, Sodium 140, Potassium 4.2, Chloride 105, Carbon Dioxide 25, Anion Gap 14.2, BUN 14, Creatinine 0.70, Estimated Creat Clear 143, Estimated GFR 126, Est GFR ( Amer) 153, Glucose 113 H, Calcium 9.4, Total Bilirubin 0.6, AST 31, ALT 30, Alkaline Phosphatase 100, Total Protein 9.0 H, Albumin 5.0, Globulin 4.0 H, Albumin/Globulin Ratio 1.3 05/20/25 15:15: VBG pH 7.33, VBG pCO2 44.2, VBG pO2 50.5 H, VBG HCO3 22.7 L, VBG Total CO2 24.0, VBG O2 Saturation 84.6 H, VBG Base Excess -3.3 L, VBG Lactic Acid 1.2 05/20/25 15:50: SARS-CoV-2 (PCR) Not detected, Influenza Type A (PCR) Not detected, Influenza Type B (PCR) Not detected, RSV (PCR) Not detected, Rhinovirus (PCR) Detected 05/20/25 13:15 05/20/25 13:15 Orders (Tests/Meds): ED MEDICATIONS Discontinued Medications Generic Name Dose Route Start Last Admin Trade Name Freq PRN Reason Stop Dose Admin Acetaminophen 1,000 mg 05/20/25 15:05 05/20/25 15:46 Acetaminophen 500mg Tab PO 05/20/25 15:06 1,000 mg ONCE ONE Administration Albuterol/Ipratropium 3 ml 05/20/25 15:05 05/20/25 15:46 Ipratropium/Albuterol 3 Ml Neb 05/20/25 15:06 3 ml ONCE ONE Administration Albuterol/Ipratropium 6 ml 05/20/25 16:25 05/20/25 16:57 Ipratropium/Albuterol 3 Ml Neb 05/20/25 16:26 6 ml ONCE ONE Administration Dexamethasone Sodium Phosphate 10 mg 05/20/25 16:25 05/20/25 16:58 Dexamethasone 4mg/Ml 1ml Vial IV 05/20/25 16:26 10 mg ONCE ONE Administration ORDERS Category Date Time Status CXR --portable [XR chest portable] Stat Exams 05/20/25 15:05 Completed CBC w/Auto Diff [Complete Blood Count Auto Diff] Stat Lab 05/20/25 13:15 Completed CMP [Comprehensive Metabolic Panel] Stat Lab 05/20/25 13:15 Completed D-Dimer Stat Lab 05/20/25 13:15 Completed HIV Combo Routine Lab 05/20/25 13:15 Received Hepatitis C Ab Qual. W/ RFX Routine Lab 05/20/25 13:15 Received Mini Respiratory Panel Stat Lab 05/20/25 15:50 Completed VBG [Venous Blood Gas] Stat RT 05/20/25 15:15 Completed Medical Decision Narrative: In summary, patient is a 40-year-old male PMHx HLD, obesity who presents to the ED for complaints of shortness of breath, fatigue, cough x 1 to 2 days. Patient states that he was exposed to some sick friends at his [employer] several days ago. He states while each year he does get a URI, it feels worse this year as he feels like he has to gasp for breath at times. Denies tobacco use. Has taken Advil [id number] for symptomatic relief. Upon initial evaluation patient is alert, oriented and cooperative. He is mildly hypertensive on initial exam. He is alert and oriented, cooperative. Bilateral lung sounds expiratory rhonchi and wheezing. Denies fever, headache, visual changes, posterior neck pain, chest pain, abdominal pain. Differential diagnoses include pulmonary embolism, pneumonia, pneumothorax, infectious process, electrolyte abnormality, among others. Discussed with patient we will proceed with labs, chest x-ray, DuoNeb. CBC remarkable for WBC 13.2, stable H&H. CMP overall unremarkable for any actionable abnormalities. D-dimer 0.39. Lactic 1.2. Chest x-ray unremarkable for any acute process. Viral swab positive for rhinovirus. Upon reassessment after DuoNeb, patient states his condition has improved. His lung sounds have improved. We discussed that he is positive for rhinovirus, advised rest, Tylenol Motrin, increase fluids. He states he has established with PCP and we discussed follow-up with PCP within 1 week. Discussed return precautions to the ED and patient verbalized understanding. He was hemodynamically stable and ambulatory without difficulty from the ED. Critical Care Critical Care Time Critical Care Time: No
[2025-05-20 15:23] LABS: Hematocrit 41.0 % (42.0-52.0); Hemoglobin 13.7 g/dL (14.1-18.0); Immature Granulocytes % 0.7 %; Mean Corpuscular HGB Conc 33.4 g/dL (31.8-35.4); Mean Corpuscular Hemoglobin 28.0 pg (27.0-31.2); Mean Corpuscular Volume 83.8 fl (80-94); Nucleated Red Blood Cells % 0 %; Platelet Count 298 K/mm3 (142-424); Red Blood Count 4.89 M/mm3 (4.60-6.20); Red Cell Distribution Width-SD 38.9 fL; White Blood Count 13.2 K/mm3 (4.8-10.8)
[2025-05-20 15:27] LABS: Lactate Venous 1.2 mmol/L (0.4-2.0); VBG HCO3 22.7 mmol/L (23-30); VBG PCO2 44.2 mmol/L (35-51); VBG PH 7.33 mmol/L (7.31-7.41); VBG PO2 50.5 mmol/L (28-40)
--- OUTSIDE RECORDS SUMMARY | 2025-05-20 15:27 | XMS_ITS | Encounter Summary ---
Author Organization [facility] Address [address] [place] [address] Care Team Providers Care Reading Professor Name Role Phone Yadiel Lagnford MD Primary Care Provider [phone] Encounter Details Date Type Department Care Team (Latest Contact Info) Description 04/14/2025 Travel Social History Tobacco Use Types Packs/Day Years [...] on file documented as of this encounter Plan of Treatment Upcoming Encounters Date Type Department Care Team (Late st Contact Info) Description 08/11/2025 3:00 PM EDT Office Visit [facility] [address] [place] [address] [place] [phone] Yadiel Langford MD [address] [place] [address] [place] [id number] 02/12/2026 3:30 PM EDT Office Visit [facility] [address] [place] [address] [place] [phone] Yadiel Langford MD [address] [place] [address] [place] [id number] documented as of this encounter Visit Diagnoses Not on filedocumented in this encounter Care Teams Reading Professor Relationship Specialty Start Date End Date Yadiel Langford MD [address] [place] [address] PCP - General Internal Medicine 04/18/22 documented as of this encounter
--- OUTSIDE RECORDS SUMMARY | 2025-05-20 15:28 | XMS_ITS | Clinical Summary ---
[facility] [address] [place] [id number] Care Team Providers Care Care Program Resident Name Role Phone Yadiel Langford MD Primary Care Provider [phone] Allergies Active Allergy Reactions Criticality Noted Date Comments Shrimp Provider Review Needed 03/06/2022 Medications sertraline (Zoloft) 100 MG tabletIndication s:Generalized anxiety disorder,Recurre nt major depressive disorder, in full remission Take 1 tablet by mouth Daily. 90 tablet 2 5 Active cetirizine (zyrTEC) 10 MG tabletIndication s:Seasonal allergic rhinitis due to pollen Take 1 tablet by mouth Daily. As needed for allergies 90 tablet 2 5 Active atorvastatin (LIPITOR) 80 MG tablet Take 1 tablet by mouth every night at bedtime. 90 tablet 2 5 Active fluticasone (FLONASE) 50 MCG/ACT nasal spray Administer 2 sprays into the nostril(s) as directed by provider Daily. 16 g 3 5 Active sildenafil (VIAGRA) 100 MG tablet Take 1 tablet by mouth As Needed for Erectile Dysfunction. 20 tablet 3 5 Active Testosterone 1.62 % gelIndications:L ow testosterone in male APPLY 1 PUMP TO EACH SHOULDER TOPICALLY ONCE DAILY (TOTAL 2 PUMPS) 75 g 5 Active Cholecalciferol (Vitamin D) 50 MCG (1999 UT) tabletIndication s:Vitamin D deficiency Take 1 tablet by mouth Daily. 90 tablet 3 5 Active mupirocin (BACTROBAN) 2 % ointmentIndicati ons:Laceration of left index finger without foreign body without damage to nail, initial encounter Apply 1 Application topically to the appropriate area as directed 3 (Three) Times a Day. 22 g Active Active Problems Problem Noted Date Diagnosed Date Laceration of left index fin tavon without foreign body without damage to nail 03/03/2025 Heartburn 02/11/2025 Assessment & Plan (02/11/2025 3:47 PM EDT): Bradick trigger of heartburn more nocturnally when eating spicy foods such as pizza. Advised regarding lifestyle change including avoiding eating or drinking several hours before bedtime, propping head upwards, limit caffeine and NSAIDs, sporadic symptoms with antacid such as Tums or Rolaids, if becomes more problematic we will then consider initiation of targeted treatment with PPI. Positive for microalbuminuria 02/11/2025 Overview (02/11/2025): Positive UACR in 02/2025 Assessment & Plan (02/11/2025 3:47 PM EDT): UACR today positive. Plan repeat testing in 6 months, and if still positive we will then initiate targeted medication, likely ARB. Snoring 02/11/2025 Assessment & Plan (02/11/2025 5:37 PM EDT): Reported history of snoring but no obvious witnessed apnea by patient's , does have some propensity to sleep during the afternoon when sitting in a chair but no hypersomnia during the daytime reported. Objectively does have an enlarged neck circumference of 19 inches with associated obesity, but oropharyngeal Mallampati score of 1. Will observe for now, working on weight loss. If becomes more problematic we will then consider referral for sleep study. Recurrent major depressive disorder, in full rem ission 06/03/2024 Assessment & Plan (02/11/2025 5:36 PM EDT): Relates his anxiety and depression well-controlled taking sertraline 100 mg daily, noting likely added benefit given change in his job situation since last visit. Continue current regimen Assessment & Plan (06/03/2024 5:43 PM EST): Clinical symptoms essentially resolved since taking higher dose of Zoloft 100 mg daily for the last 6 weeks. No side effects of medication. Concomitantly his anxiety disorder has also responded well to treatment with Zoloft. Continue current regimen of Zoloft 100 mg daily Moderate obesity 04/18/2024 Assessment & Plan (04/18/2024 5:13 PM EST): 8 pound weight loss over the last 5 months, encouraged ongoing efforts at physical activity along with healthy diet. Need for influenza vaccination 04/18/2024 Need for COVID-19 vaccine 04/18/2024 Current mild episode of stefanie r depressive disorder without prior episode 04/18/2024 Assessment & Plan (04/18/2024 5:15 PM EST): Longstanding diagnosis of generalized anxiety disorder, historically having been well treated with sertraline 50 mg daily. Having increasing anxiousness and irritability with some dysthymic symptoms over the last month, no specific identifiable trigger. Does have low testosterone but has been therapeutic on his levels most recently tested in 11/2023. He tolerates the sertraline well. We discussed options of treatment, with plan to increase sertraline gradually, initially 75 mg daily for 5 or 6 doses then increase to 100 mg daily, with delayed onset of benefits and early potential onset and side effects discussed. Reassess clinically in 6 weeks, advising if problems in the interim Encounter for general adult medical examination with abnormal findings 11/03/2023 Assessment & Plan (02/11/2025 5:36 PM EDT): 39-year-old male presenting for yearly complete physical, specific health issues addressed as detailed below, health maintenance includes laboratory update today, recommend obtaining COVID-19 and flu vaccines per standard guidelines when available. Tentative follow-up in 6 months for review of his prediabetes as well as his testosterone replacement, and as needed in the interim Assessment & Plan (11/03/2023 5:08 PM EDT): 38-year-old male presenting for complete physical, health issues being addressed as detailed below, health maintenance includes recommendation to update COVID-19 and also keep updated with flu vaccine guidelines, update screening labs, noting labs will be obtained on another day given the late hour patient being seen in the office today, with phlebotomy no longer available today. Screening for prostate cancer 11/03/2023 Assessment & Plan (02/11/2025 3:48 PM EDT): Obtain diagnostic PSA given therapy with testosterone Assessment & Plan (11/03/2023 5:07 PM EDT): PSA screen being obtained given his testosterone replacement of his low testosterone diagnosis Screening for thyroid disorder 11/03/2023 Viral URI with cough 11/03/2023 Assessment & Plan (11/03/2023 5:03 PM EDT): Mild URI symptoms likely viral in etiology. Minimal objective abnormality noted on the office today. Treat symptomatically with OTC cough and cold medications, anticipating improvement in the next 5 to 7 days. If not improving over that time interval or for any significant worsening of symptoms in the interim, advise accordingly. Skin tag 10/21/2022 Vasculogenic erectile dysfunction 10/21/2022 Assessment & Plan (02/11/2025 3:48 PM EDT): Clinically getting good response to taking Viagra, with good libido on testosterone supplementation. Assessment & Plan (11/03/2023 5:07 PM EDT): Good clinical results using Viagra as needed, also on testosterone supplementation. Encounter for monitoring testosterone replacemen t therapy 10/21/2022 Assessment & Plan (02/11/2025 3:44 PM EDT): Continues long-term prescription of AndroGel 1.60% at 1 pump applied to each shoulder daily, noting he feels well clinically with good libido, requiring Viagra to maintain erections, satisfied with response. Update standard related meds including testosterone level, LFTs and the CMP, CBC and PSA. Assuming testosterone level is therapeutic we will update testing in 6 months. Assessment & Plan (11/03/2023 5:06 PM EDT): Longstanding testosterone deficiency on supplement, currently using AndroGel 1.62% at 1 pump applied to each shoulder daily. Clinically feels well, will check serum level, supplement also by LFTs and a CMP, CBC specifically monitoring his hemoglobin, as well as a PSA. Repeat testosterone in 6 months assuming therapeutic. Low testosterone in male 04/15/2022 Overview (04/15/2022): on replacement therapy March 2018, secondary erectile dysfunction improved Assessment & Plan (04/18/2024 5:13 PM EST): On AndroGel replacement therapy with most recent testosterone level therapeutic in 11/2023. Will update testing at next visit Hyperlipidemia 04/15/2022 Overview (04/15/2022): status post initiation of therapy 01/2018 Assessment & Plan (02/11/2025 3:43 PM EDT): Currently prescribed atorvastatin 80 mg nightly. Update lipid profile. Pursue healthy lifestyle with diet and exercise. Assessment & Plan (11/03/2023 5:03 PM EDT): Taking atorvastatin 80 mg nightly. Update lipid profile. Generalized anxiety disorder 04/15/2022 Assessment & Plan (02/11/2025 5:36 PM EDT): Relates his anxiety and depression well-controlled taking sertraline 100 mg daily, noting likely added benefit given change in his job situation since last visit. Continue current regimen Assessment & Plan (06/03/2024 5:42 PM EST): Standing diagnosis of generalized anxiety, with significant social component, this in conjunction with some depressive symptoms. Previously treated well sertraline, having been discontinued by patient in the past. Has had recurring symptoms now for the last couple months, initially having been started back on sertraline 50 mg daily with suboptimal response, and over the last 6 weeks taking sertraline 100 mg daily with almost complete resolution of the symptoms. He feels well, no side effects of medication, very pleased with his response. Plan continue current regimen of Zoloft 100 mg daily. Assessment & Plan (04/18/2024 5:15 PM EST): Longstanding diagnosis of generalized anxiety disorder, historically having been well treated with sertraline 50 mg daily. Having increasing anxiousness and irritability with some dysthymic symptoms over the last month, no specific identifiable trigger. Does have low testosterone but has been therapeutic on his levels most recently tested in 11/2023. He tolerates the sertraline well. We discussed options of treatment, with plan to increase sertraline gradually, initially 75 mg daily for 5 or 6 doses then increase to 100 mg daily, with delayed onset of benefits and early potential onset and side effects discussed. Reassess clinically in 6 weeks, advising if problems in the interim Assessment & Plan (11/03/2023 5:08 PM EDT): Reports good control of his symptoms taking sertraline 50 mg daily. Allergic rhinitis due to pollen 04/15/2022 Assessment & Plan (02/11/2025 3:43 PM EDT): Use Flonase and Zyrtec as needed. Assessment & Plan (11/03/2023 5:02 PM EDT): Reports good control historically using Flonase, may add loratadine or Zyrtec OTC as needed. Morbid (severe) obesity due to excess calories 1 06/15/2021 Assessment & Plan (02/11/2025 3:45 PM EDT): Unfortunately has gained 35 more pounds of weight since last seen 9 months ago, this attributed largely to decline in his healthy diet eating more junk foods fast foods and sweetened drinks as well as sedentary lifestyle. We previously have discussed his weight loss, most recently patient having declined assistance with weight loss medications. He continues to decline options of GLP-1 agonist, phentermine and/or Topamax. He will work on lifestyle change. I did advise him that if he continues to struggle with weight loss over the next couple months, to reschedule an appointment to discuss other options again Assessment & Plan (06/03/2024 5:45 PM EST): Longstanding struggle with obesity, having some waxing and waning of his weight depending on his commitment to lifestyle change. Most recently he has gained 13 pounds in weight in the last 6 weeks. Previously discussed treatment options including GLP-1 agonist which would be cost prohibitive as well as phentermine therapy, patient previously as well as currently declining any medication assistance with weight loss at this time. We will reassess his success at weight loss efforts with lifestyle change at a complete physical in 6 months. Advise if problems in the interim Assessment & Plan (11/03/2023 5:04 PM EDT): Historically has had waxing waning difficulty with his obesity. He recently has made concerted efforts in losing weight with some success having 9 pound weight loss in the last 9 months, this with dietary modification and regular physical activity. Continue current regimen, discussing with patient medication treatment options including GLP-1 agonist which at this time would be cost prohibitive, as well as phentermine therapy. He wishes to pursue lifestyle change initially and if he reaches a bridgett on weight loss, then we will discuss further options. Prediabetes 04/15/2022 Overview (02/11/2025): hemoglobin A1c 6.0% on 09/13/2021, hemoglobin A1c 5.7% on 12/28/2021, 5.9% in 10/2022, 5.9% in 11/2023, 5.9% in 02/2025 UACR positive in 02/2020 Assessment & Plan (02/11/2025 3:46 PM EDT): Hemoglobin 8C today stable at 5.9% versus 11/2023, UACR today positive. Pursue healthy lifestyle efforts with diet and exercise, discussed GLP-1 agonist to assist with weight loss which would also assist with diabetic control, patient declining currently. Plan repeat UACR again at follow-up visit in 6 months, and if still positive will initiate ARB or SHIRA inhibitor at that time. Assessment & Plan (11/03/2023 5:05 PM EDT): Most recent hemoglobin A1c 5.9% in 10/2022, patient recently initiating lifestyle modification with diet and exercise. Will update hemoglobin A1c currently and make further recommendations accordingly. Vitamin D deficiency 04/15/2022 Assessment & Plan (02/11/2025 3:46 PM EDT): Taking vitamin D 1000 IU once daily. Update level. Resolved Problems Problem Noted Date Diagnosed Date Resolved Date Hyperproteinemia 04/15/2022 04/15/2022 Overview (04/15/2022): MILD, with subsequent normal serum protein electrophoresis 01/2018, status post normalization of total protein 06/2018 Encounters Date Type Department Care Team Description 04/14/2025 1:15 PM EST Office Visit [facility] [address] [place] [address] [place] [phone] Yadiel Langford MD Acute pharyngitis, unspecified etiology (Primary Dx) 04/14/2025 Travel 03/03/2025 11:15 AM EDT Office Visit [facility] [address] [place] [address] [place] [phone] Yadiel Langford MD Laceration of left index finger without foreign body without damage to nail, initial encounter (Primary Dx); Need for influenza vaccination 03/03/2025 Travel 02/18/2025 Telephone [facility] [address] [place] [address] [place] [phone] Yadiel Langford MD from Last 3 Months Immunizations Immunization Administration Dates Next Due COVID-19 (MODERNA) 1st,2nd,3 rd Dose Monovalent 09/30/2020,09/02/2020 COVID-19 (MODERNA) Monovalen t Original Booster 06/11/2021 COVID-19 (PFIZER) 12YRS+ (COMIRNATY) 04/18/2024 COVID-19 (UNSPECIFIED) 06/11/2021,09/30/2020, Fluzone >6mos 03/03/2025,04/18/2024 Fluzone (or Fluarix & Flulav al for VFC) >6mos 04/18/2022,06/03/2020 Fluzone Quad >6mos (Multi-dose) 04/18/2022 Hep B, Adolescent or Pediatric 09/29/2000,1999,09/06/1999 Influenza, Unspecified 06/03/2020 MMR 09/06/1999 Td (TDVAX) 09/29/2000 Tdap 07/30/2020 Family History Medical History Relation Name Comments No Known Problems Brother Lung disease Father LUNG NODULE NICOLASA OLOGY YET UNKNOWN No Known Problems Mother Breast cancer Sister 1 Marisa bills Heart disease Sister 1 Marisa bills Kidney disease Sister 1 Marisa bills CHRONIC KIDNE Y DISEASE WITH SECONDARY KIDNEY TRANSPLANT Skin cancer Sister 1 Marisa bills No Known Problems Sister 2 Cancer Sister 3 Marisa Relation Name Status Comments Brother Father Mother Other 3 CHILDREN Sister 1 Marisa bills Sister 2 Sister 3 Marisa Social History Tobacco Use Types Packs/Day Years Used Date Smoking Tobacco: Never Smokeless Tobacco: Never Tobacco Cessation:Counseling Given: Not Answered Alcohol Use Standard Drinks/Week Comments Yes 0 [...] on file Sexual Orientation Not on file Last Filed Vital Signs Vital Sign Reading [...] Mass Index 44.42 04/14/2025 1:09 PM EST Plan of Treatment Upcoming Encounters Date Type Department Care Team (Late st Contact Info) Description 08/11/2025 3:00 PM EDT Office Visit [facility] [address] [place] [address] [place] [phone] Yadiel Langford MD [address] [place] [address] [place] [address] 02/12/2026 3:30 PM EDT Office Visit [facility] [address] [place] [address] [place] [phone] Yadiel Langford MD [address] [place] [address] [place] [address] Health Maintenance Due Date Last Done Comments ANNUAL PHYSICAL 02/11/2026 02/11/2025, 10/05, 08/05/2021 LIPID PANEL 02/11/2026 02/11/2025, 11/04, 10/21/2022, Additional history exists TDAP/TD VACCINES (3 - Td or Tdap) 07/30/2030 07/30/2020, 09/29/2000 HEPATITIS C SCREENING Completed 04/18/2022 INFLUENZA VACCINE Completed 03/03/2025, , 04/18/2022, Additional history exists Pneumococcal Vaccine 0-49 Aged Out No longer eligible based on patient's age to complete this topic Procedures Procedure Name Priority Date/Time Associated Diagnosis Comments POCT RAPID STREP A Routine 04/14/2025 1: 46 PM EST Acute pharyngitis, unspecified etiology LIPID PANEL Routine 02/11/2025 3:24 PM EDT Encounter for general adult medical examination with abnormal findings HEPATITIS C ANTIBODY Routine 04/18/2022 4:05 PM EST Need for hepatitis C screening test from Last 3 Months or Most Recently Relevant to Health Maintenance Results * POC Rapid Strep A (04/14/2025 1:46 PM EST) Rapid Strep A Screen Negative Negative, VALID, INVALID, Not Performed [facility] Internal Control Passed Passed [facility] Lot Number [id number] [facility] Expiration Date 05/06/2026 [facility] Swab 04/14/2025 1:46 PM EST Yadiel Langford MD POINT OF CARE TEST ORDERABLES Final Result [facility]
[address] [place] [address], [place] [phone] * (ABNORMAL) Lipid Panel (02/11/2025 3:24 PM EDT) Total Cholesterol 239(H) 100 - 199 mg/dL [facility] Triglycerides 245(H) 0 - 149 mg/dL [facility] HDL Cholesterol 36(L) >39 mg/dL [facility] VLDL Cholesterol Fercho 46(H) 5 - 40 mg/dL [facility] LDL Chol Calc (NIH) 157(H) 0 - 99 mg/dL [facility] Blood Structure of left upper limb / Unknown 02/11/2025 3:24 PM EDT 02/11/2025 Comment:Blood Release to [facility] i Narrative [facility] - 02/12/2025 1:07 PM EDT Performed at: 01 - [address] [id number] Video Game Animator: Tolu Mckeon PhD, Phone: [phone] Yadiel Langford MD LAB BLOOD ORDERABLES Final Res ult [facility] [address] [place] [address], [facility] [address] [place] [id number], * Hepatitis C Antibody (04/18/2022 4:05 PM EST) Hep C Virus Ab <0.1 0.0 - 0.9 s/co ratio [facility] Comment: Negative: < 0.8 Indeterminate: 0.8 - 0.9 Positive: > 0.9 HCV antibody alone does not differentiate between previous resolved infection and active infection. The CDC and current clinical guidelines recommend that a positive HCV antibody result be followed up with an HCV RNA test to support the diagnosis of acute HCV infection. [facility] offers Hepatitis C Virus (HCV) RNA, Diagnosis, BER[facility]TE (022674) and Hepatitis C Virus (HCV) Antibody with reflex to Quantitative Real-time PCR (383177). Blood Structure of left upper limb / Unknown 04/18/2022 4:05 PM EST 04/18/2022 Comment:Blood Release to brody Cervantes [facility] - 04/19/2022 10:07 AM EST [facility]formed at: 01 - [facility] [address] [place] [id number] Video Game Animator: Tolu Mckeon PhD, Phone: [phone] us Yadiel Langford MD LAB BLOOD ORDERABLES Final Res ult [facility] [address] [place] [address], [facility] [address] [place] [address], from Last 3 Months or Most Recently Relevant to Health Maintenance Insurance Care Teams Care Program Resident Relationship Specialty Start Date End Date Yadiel Langford MD [address] [place] [address] PCP - General Internal Medicine 04/18/22
[2025-05-20 15:45] LABS: Alanine Aminotransferase 30 U/L (12-78); Albumin Level 5.0 g/dl (3.5-5.0); Albumin/Globulin Ratio 1.3 (1.1-1.8); Alkaline Phosphatase 100 U/L (38-126); Anion Gap 14.2 mEq/L (5-15); Aspartate Amino Transferase 31 U/L (17-59); Bilirubin,Total 0.6 mg/dl (0.2-1.3); Blood Urea Nitrogen 14 mg/dl (9-20); Calcium 9.4 mg/dl (8.4-10.2); Carbon Dioxide 25 mmol/L (22.0-30.0); Chloride 105 mmol/L (98-107); Creatinine Clearance Estimated 143 mL/min (50-200); Creatinine,Serum 0.70 mg/dl (0.66-1.25); Estimated Glomerular Filt Rate 126 ml/min (>60); GFR (African American) 153 ML/MIN (>60); Globulin 4.0 g/dL (1.3-3.2); Glucose 113 mg/dl (74-100); Potassium 4.2 mmoL/L (3.5-5.1); Sodium 140 mmol/L (136-145); Total Protein,Serum 9.0 g/dl (6.3-8.2)
[2025-05-20] MEDS: ACETAMINOPHEN 500MG TAB 1000 MG PO (15:46)
[2025-05-20] MEDS: IPRATROPIUM/ALBUTEROL 3 ML NEB IH (15:46)
[2025-05-20 16:01] LABS: Coronavirus 19, PCR Not Detected (NotDetected); Influenza A, PCR Not Detected (NotDetected); Influenza B, PCR Not Detected (NotDetected)
[2025-05-20 16:18] LABS: D-Dimer 0.39 ug/mL (0.0-0.5)
[2025-05-20] MEDS: IPRATROPIUM/ALBUTEROL 3 ML NEB 6 ML IH (16:57)
[2025-05-20] MEDS: DEXAMETHASONE 4MG/ML 1ML VIAL 10 MG IV (16:58)
[2025-05-20 17:52] VITALS: BP 149/81; PULSE 102; RESP 19; TEMP 36.8; O2SAT 95
[2025-05-20 18:40] LABS: Hepatitis C Ab Qual. W/ RFX REACTIVE (Negative)
== END 2025-05-20 17:53 | disposition home or self-care (01) ==
PROVIDERS: Nurse Practitioner; Student in an Organized Health Care Education/Training Program; Emergency Provider Student in an Organized Health Care Education/Training Program; PCP Internal Medicine
DX: R06.02 Shortness of breath (principal); R06.2 Wheezing; R00.0 Tachycardia, unspecified; J06.9 Acute upper respiratory infection, unspecified; B34.8 Other viral infections of unspecified site
CPT/HCPCS: 71045; 80053; 82803; 85025; 85378; 86803; 87389; 87522; 87631; 96374; 99284; J1100